=== PATIENT | male | born 1955 | race Hispanic/Latino ===

== ENCOUNTER 2021-10-10 02:57 | Emergency (ER) | payer OTHER ==
[~2021-10-10] VITALS: Ht 182.9 cm; Wt 73.6 kg
[2021-10-10 03:54] LABS: HEMATOCRIT 30.7 % (39.0-50.0); HEMOGLOBIN 10.1 g/dl (14.0-18.0); IMMATURE GRANULOCYTES 0.3 % (0.0-5.0); MEAN CORPUSCULAR HGB 33.9 pG CALC (26.0-32.0); MEAN CORPUSCULAR HGB CONC 32.9 g/dL CAL (32.0-36.0); NEUT# 14.06 thou/uL (1.82-7.42); RED BLOOD COUNT 2.98 mill/uL (4.70-6.10); RED CELL DISTRI WIDTH 13.4 % (11.5-15.5)
[2021-10-10] MEDS ORDERED: BUMETANIDE1 MG PO (03:55)
[2021-10-10] MEDS ORDERED: CALCITRIOL0.25 MC1 PO (03:55)
[2021-10-10] MEDS ORDERED: CLOPIDOGREL75 MG PO (03:56)
[2021-10-10] MEDS ORDERED: OMEPRAZOLE20 MG PO (03:56)
[2021-10-10] MEDS ORDERED: RENVELA800 MG PO (03:57)
[2021-10-10] MEDS ORDERED: CARVEDILOL6.25 MG PO (03:58)
[2021-10-10] MEDS ORDERED: [UNRECOGNIZED DRUG - OTHER] PO (03:59)
[2021-10-10] MEDS ORDERED: B COMPLEX PO (03:59)
[2021-10-10] MEDS ORDERED: ASPIRIN EC LOW81 MG PO (04:00)
[2021-10-10] MEDS ORDERED: ATORVASTATIN CA20 MG PO (04:00)
[2021-10-10] MEDS ORDERED: CYMBALTA60 MG PO (04:01)
[2021-10-10] MEDS ORDERED: DOCUSATE SOD100 MG PO (04:02)
[2021-10-10] MEDS ORDERED: ACETAMINOPHEN325 MG PO (04:03)
[2021-10-10 04:09] LABS: TOTAL PROTEIN 6.5 g/dL (6.3-8.2)
[2021-10-10 04:13] LABS: ALBUMIN 3.5 g/dL (3.2-5.0); BILIRUBIN, TOTAL 0.9 mg/dL (0.0-1.4)
[2021-10-10 04:14] LABS: POTASSIUM 5.8 mmol/l (3.5-5.1)
[2021-10-10 08:03] VITALS: BP 125/63
== END 2021-10-10 09:04 | disposition short-term general hospital (02) | DRG 314 ==
LOC: ED 02:57
PROVIDERS: Emergency Medicine
DX: T82.7XXA Infection and inflammatory reaction due to other cardiac and vascular devices, implants and grafts, initial encounter (principal); N18.6 End stage renal disease; Z99.2 Dependence on renal dialysis; Y83.2 Surgical operation with anastomosis, bypass or graft as the cause of abnormal reaction of the patient, or of later complication, without mention of misadventure at the time of the procedure; Z20.822 Contact with and (suspected) exposure to COVID-19

== ENCOUNTER 2023-04-28 21:12 | Emergency (ER) | payer OTHER ==
[~2023-04-28] VITALS: Ht 182.9 cm; Wt 92.0 kg
[~2023-04-28 21:12] MED LIST: ACETAMINOPHEN325 MG PO; ASPIRIN EC LOW81 MG PO; ATORVASTATIN CA20 MG PO; B COMPLEX PO; BUMETANIDE1 MG PO; CALCITRIOL0.25 MC1 PO; CARVEDILOL6.25 MG PO; CLONIDINE0.2 MG PO; CLOPIDOGREL75 MG PO; CYMBALTA60 MG PO; DOCUSATE SOD100 MG PO; OMEPRAZOLE20 MG PO; RENVELA800 MG PO; [UNRECOGNIZED DRUG - OTHER] PO
[2023-04-28 22:27] LABS: BASO% 0.2 % (0-3); EOS% 0.2 % (0-8); HEMATOCRIT 25.9 % (39.0-50.0); HEMOGLOBIN 8.2 g/dl (14.0-18.0); IMMATURE GRANULOCYTES 0.5 % (0.0-5.0); LYMPH% 5.4 % (15-41); MEAN CELL VOLUME 98.9 fL CALC (80.0-100.0); MEAN CORPUSCULAR HGB 31.3 pG CALC (26.0-32.0); MEAN CORPUSCULAR HGB CONC 31.7 g/dL CAL (32.0-36.0); MONO% 6.4 % (2-13); NEUT# 11.36 thou/uL (1.82-7.42); NEUT% 87.3 % (42-76); RED BLOOD COUNT 2.62 mill/uL (4.70-6.10); RED CELL DISTRI WIDTH 14.8 % (11.5-15.5)
[2023-04-28 22:33] LABS: C-REACTIVE PROTEIN 7.8 mg/dL (0-0.9)
[2023-04-28] MEDS ORDERED: LEVAQUIN750 M1 PO (22:55)
[2023-04-28 23:58] VITALS: BP 138/75
== END 2023-04-29 | disposition home or self-care (01) | DRG 603 ==
LOC: ED 21:12
PROVIDERS: Family Medicine
DX: L03.115 Cellulitis of right lower limb (principal); S80.811A Abrasion, right lower leg, initial encounter; I10 Essential (primary) hypertension; G62.9 Polyneuropathy, unspecified; X58.XXXA Exposure to other specified factors, initial encounter

== ENCOUNTER 2023-05-03 11:16 | Observation (INO) | payer OTHER ==
[~2023-05-03] VITALS: Ht 182.9 cm; Wt 67.0 kg
[~2023-05-03 11:16] MED LIST changes: +LEVAQUIN750 M1 PO
[2023-05-03 11:28] VITALS: BP 122/67
[2023-05-03 11:30] VITALS: BP 121/70
[2023-05-03 12:11] LABS: BASO% 0.5 % (0-3); EOS% 2.3 % (0-8); HEMATOCRIT 27.3 % (39.0-50.0); HEMOGLOBIN 8.4 g/dl (14.0-18.0); IMMATURE GRANULOCYTES 1.4 % (0.0-5.0); LYMPH% 13.5 % (15-41); MEAN CELL VOLUME 100.4 fL CALC (80.0-100.0); MEAN CORPUSCULAR HGB 30.9 pG CALC (26.0-32.0); MEAN CORPUSCULAR HGB CONC 30.8 g/dL CAL (32.0-36.0); MONO% 12.1 % (2-13); NEUT# 5.17 thou/uL (1.82-7.42); NEUT% 70.2 % (42-76); RED BLOOD COUNT 2.72 mill/uL (4.70-6.10); RED CELL DISTRI WIDTH 14.4 % (11.5-15.5)
[2023-05-03 12:18] LABS: ALBUMIN 3.6 g/dL (3.2-5.0); BILIRUBIN, TOTAL 0.8 mg/dL (0.2-1.3); CREATININE 4.8 mg/dL (0.7-1.3); POTASSIUM 4.9 mmol/l (3.5-5.1); TOTAL PROTEIN 7.5 g/dL (6.3-8.2)
[2023-05-03] MEDS ORDERED: ATORVASTATIN CA20 MG PO (14:50)
[2023-05-03] MEDS ORDERED: PHOSLO667 MG PO ×2 (14:52→14:55)
[2023-05-03] MEDS ORDERED: TRAMADOL HCL50 MG PO (14:52)
[2023-05-03] MEDS ORDERED: ROPINIROLE0.5 MG PO (14:57)
[2023-05-03] MEDS ORDERED: COLACE100 MG PO (14:58)
[2023-05-03 18:31] LABS: HEMATOCRIT 26.7 % (39.0-50.0); HEMOGLOBIN 8.4 g/dl (14.0-18.0)
[2023-05-03 19:22] VITALS: BP 119/59
[2023-05-04 04:24] VITALS: BP 123/64
[2023-05-04 06:01] LABS: BASO% 0.5 % (0-3); EOS% 2.9 % (0-8); HEMATOCRIT 24.3 % (39.0-50.0); HEMOGLOBIN 7.8 g/dl (14.0-18.0); IMMATURE GRANULOCYTES 1.6 % (0.0-5.0); LYMPH% 15.2 % (15-41); MEAN CELL VOLUME 98.4 fL CALC (80.0-100.0); MEAN CORPUSCULAR HGB 31.6 pG CALC (26.0-32.0); MEAN CORPUSCULAR HGB CONC 32.1 g/dL CAL (32.0-36.0); MONO% 13.9 % (2-13); NEUT# 3.65 thou/uL (1.82-7.42); NEUT% 65.9 % (42-76); RED BLOOD COUNT 2.47 mill/uL (4.70-6.10); RED CELL DISTRI WIDTH 14.3 % (11.5-15.5)
[2023-05-04 06:26] LABS: ALBUMIN 3.4 g/dL (3.2-5.0); BILIRUBIN, TOTAL 0.7 mg/dL (0.2-1.3); POTASSIUM 4.5 mmol/l (3.5-5.1); TOTAL PROTEIN 7.3 g/dL (6.3-8.2)
[2023-05-04 06:36] LABS: CREATININE 5.7 mg/dL (0.7-1.3)
[2023-05-04 06:57] VITALS: BP 136/63
[2023-05-04 11:55] VITALS: BP 126/78
[2023-05-04 13:54] VITALS: BP 126/78
[2023-05-04 14:36] LABS: HEMATOCRIT 25.1 % (39.0-50.0); HEMOGLOBIN 7.7 g/dl (14.0-18.0)
[2023-05-04] MEDS ORDERED: LEVOFLOXACIN IV (15:42)
[2023-05-04] MEDS ORDERED: [UNRECOGNIZED DRUG - OTHER] IV (15:42)
[2023-05-04] MEDS ORDERED: VANCOMYCIN IV (15:42)
[2023-05-04 18:57] VITALS: BP 141/70
== END 2023-05-04 19:15 | disposition designated cancer center or children's hospital (05) | DRG 602 ==
LOC: ED 11:16 → ED-I 13:27 → ED 13:40 → MS2 13:41
PROVIDERS: Family Medicine; Nurse Practitioner Family; ADMIT Student in an Organized Health Care Education/Training Program; ATTEND Student in an Organized Health Care Education/Training Program
PROC: 5A1D70Z Performance of Urinary Filtration, Intermittent, Less than 6 Hours Per Day (ICD-10-PCS; principal; 2023-05-04)
DX: L03.115 Cellulitis of right lower limb (principal); N18.6 End stage renal disease; I13.2 Hypertensive heart and chronic kidney disease with heart failure and with stage 5 chronic kidney disease, or end stage renal disease; K92.1 Melena; N25.81 Secondary hyperparathyroidism of renal origin; L97.512 Non-pressure chronic ulcer of other part of right foot with fat layer exposed; M20.41 Other hammer toe(s) (acquired), right foot; I50.9 Heart failure, unspecified; D63.1 Anemia in chronic kidney disease; Z99.2 Dependence on renal dialysis; E78.5 Hyperlipidemia, unspecified; G62.9 Polyneuropathy, unspecified; I73.9 Peripheral vascular disease, unspecified; Z79.02 Long term (current) use of antithrombotics/antiplatelets; Z88.0 Allergy status to penicillin
CPT/HCPCS: G0378

== ENCOUNTER 2024-04-15 19:45 | Emergency (ER) | payer OTHER ==
[~2024-04-15] VITALS: Ht 182.9 cm; Wt 67.0 kg
[~2024-04-15 19:45] MED LIST changes: +BACLOFEN20 MG PO; -CARVEDILOL6.25 MG PO; +CINACALCET HYDR30 MG PO; +COLACE100 MG PO; +COREG3.125 MG PO; +LASIX 20 MG TAB20 MG PO; +LEVOFLOXACIN IV; +MINERI1; +MUPIROCIN2 % EX; +PHOSLO667 MG PO; +PROTONIX40 M2 PO; +ROPINIROLE0.5 MG PO; +TRAMADOL HCL50 MG PO; +VANCOMYCIN IV; +VANCOMYCIN500 MG IJ; +VITAMIN D325 MCG PO; +[UNRECOGNIZED DRUG - OTHER] IV
[2024-04-15 20:20] VITALS: BP 104/64
== END 2024-04-15 20:20 | disposition designated cancer center or children's hospital (05) | DRG 951 ==
LOC: ED 19:45
DX: Z46.89 Encounter for fitting and adjustment of other specified devices (principal); I33.0 Acute and subacute infective endocarditis; N18.6 End stage renal disease; I12.0 Hypertensive chronic kidney disease with stage 5 chronic kidney disease or end stage renal disease; Z99.2 Dependence on renal dialysis; G62.9 Polyneuropathy, unspecified

== ENCOUNTER 2024-04-20 09:51 | Emergency (ER) | payer OTHER ==
[~2024-04-20] VITALS: Ht 182.9 cm; Wt 63.5 kg
[2024-04-20] VITALS (18 sets, daily range): BP systolic 143–182; BP diastolic 84–152
[2024-04-20 11:01] LABS: BASO% 0.3 % (0-3); EOS% 0.3 % (0-8); IMMATURE GRANULOCYTES 0.3 % (0.0-5.0); LYMPH% 18.3 % (15-41); MEAN CORPUSCULAR HGB 34.6 pG CALC (26.0-32.0); MEAN CORPUSCULAR HGB CONC 31.6 g/dL CAL (32.0-36.0); MONO% 4.4 % (2-13); NEUT% 76.4 % (42-76); RED BLOOD COUNT 3.93 mill/uL (4.70-6.10)
[2024-04-20 11:06] LABS: HEMATOCRIT 43.1 % (39.0-50.0); HEMOGLOBIN 13.6 g/dl (14.0-18.0); MEAN CELL VOLUME 109.7 fL CALC (80.0-100.0)
[2024-04-20 11:47] LABS: TSH, 3RD GENERATION 91.6 uIU/mL (0.47 - 4.68)
[2024-04-20] MEDS ORDERED: LEVOTHYROXINE SODIUM 200 MCG VIAL IV ONE (12:35)
[2024-04-20] MEDS ORDERED: HYDROCORTISONE SODIUM SUCCINAT 100 MG VIAL IV ONE (12:35)
[2024-04-20 13:18] LABS: ALBUMIN 3.1 g/dL (3.2-5.0); ALKALINE PHOSPHATASE 104 u/l (38-126); ANION GAP 11 (6-22 (CALC)); BILIRUBIN, TOTAL 0.7 mg/dL (0.2-1.3); BUN 52 mg/dL (8-23); CARBON DIOXIDE 30 mmol/l (22-30); CHLORIDE 105 mmol/l (95-108); LIPASE 87 u/l (23-300); MAGNESIUM 1.9 mg/dL (1.6-2.3); POTASSIUM 4.4 mmol/l (3.5-5.1); SGOT/AST 38 u/l (19-48); TOTAL PROTEIN 6.6 g/dL (6.3-8.2)
[2024-04-20 13:19] LABS: BUN/CREATININE RATIO 13 (12-20 (CALC)); ESTIMATED GFR 16 ML/MIN (>=90 (CALC)); SODIUM 142 mmol/l (137-146)
[2024-04-20] MEDS ORDERED: AZTREONAM 1 GM in SODIUM CHLORIDE 0.9% 50 ML IV ONE (14:20)
== END 2024-04-20 15:16 | disposition short-term general hospital (02) | DRG 947 ==
LOC: ED 09:51
PROVIDERS: Family Medicine
DX: R41.82 Altered mental status, unspecified (principal); E03.9 Hypothyroidism, unspecified; N18.6 End stage renal disease; I12.0 Hypertensive chronic kidney disease with stage 5 chronic kidney disease or end stage renal disease; Z99.2 Dependence on renal dialysis; G62.9 Polyneuropathy, unspecified; Z20.822 Contact with and (suspected) exposure to COVID-19

== ENCOUNTER 2024-09-06 11:09 | Emergency (ER) | payer OTHER ==
[2024-09-06] VITALS (18 sets, daily range): BP systolic 71–124; BP diastolic 28–74
[~2024-09-06] VITALS: Ht 182.9 cm; Wt 60.0 kg
[2024-09-06] MEDS ORDERED: SODIUM CHLORIDE 0.9% 500 ML IV ONE (11:20)
[2024-09-06] MEDS ORDERED: SODIUM CHLORIDE 0.9% 250 ML IV ONE (11:30)
[2024-09-06] MEDS ORDERED: Pantoprazole Sodium 40 MG VIAL (Protonix) IV ONE (11:30)
[2024-09-06] MEDS ORDERED: SODIUM CHLORIDE 0.9% 250 ML IV PRN (12:10)
[2024-09-06] MEDS ORDERED: NOREPINEPHRINE BITARTRATE 4 MG in DEXTROSE 5% 250 ML IV ONE (12:10)
[2024-09-06 12:30] LABS: POTASSIUM 4.4 mmol/l (3.5-5.1)
[2024-09-06 12:33] LABS: BASO% 0.5 % (0-3); EOS% 0.1 % (0-8); IMMATURE GRANULOCYTES 1.8 % (0.0-5.0); LYMPH% 11.4 % (15-41); MEAN CORPUSCULAR HGB 33.3 pG CALC (26.0-32.0); MEAN CORPUSCULAR HGB CONC 28.7 g/dL CAL (32.0-36.0); MONO% 5.7 % (2-13); NEUT# 7.04 thou/uL (1.82-7.42); NEUT% 80.5 % (42-76); RED BLOOD COUNT 0.87 mill/uL (4.70-6.10); RED CELL DISTRI WIDTH 22.6 % (11.5-15.5)
[2024-09-06 12:41] LABS: ALBUMIN 2.5 g/dL (3.2-5.0); BILIRUBIN, TOTAL 0.5 mg/dL (0.2-1.3)
[2024-09-06 12:42] LABS: HEMATOCRIT 10.1 % (39.0-50.0); HEMOGLOBIN 2.9 g/dl (14.0-18.0); MEAN CELL VOLUME 116.1 fL CALC (80.0-100.0)
[2024-09-10 13:25] VITALS: BP 105/57
[2024-09-10 13:45] VITALS: BP 110/65
[2024-09-10 13:50] VITALS: BP 108/65
[2024-09-10 14:15] VITALS: BP 118/75
== END 2024-09-06 14:13 | disposition short-term general hospital (02) | DRG 811 ==
LOC: ED 11:09
PROVIDERS: Family Medicine
PROC: 30243N1 Transfusion of Nonautologous Red Blood Cells into Central Vein, Percutaneous Approach (ICD-10-PCS; principal; 2024-09-06)
PROC: 30243N1 Transfusion of Nonautologous Red Blood Cells into Central Vein, Percutaneous Approach (ICD-10-PCS; 2024-09-06)
PROC: 30243N1 Transfusion of Nonautologous Red Blood Cells into Central Vein, Percutaneous Approach (ICD-10-PCS; 2024-09-06)
DX: D64.9 Anemia, unspecified (principal); N18.6 End stage renal disease; K92.1 Melena; I12.0 Hypertensive chronic kidney disease with stage 5 chronic kidney disease or end stage renal disease; I95.9 Hypotension, unspecified; I48.91 Unspecified atrial fibrillation; Z99.2 Dependence on renal dialysis; G62.9 Polyneuropathy, unspecified; Z85.038 Personal history of other malignant neoplasm of large intestine; Z79.82 Long term (current) use of aspirin
CPT/HCPCS: J2470; P9016

== ENCOUNTER 2024-09-13 14:40 | Emergency (ER) | payer OTHER ==
[~2024-09-13] VITALS: Ht 182.9 cm; Wt 54.0 kg
[2024-09-13] VITALS (12 sets, daily range): BP systolic 66–145; BP diastolic 42–88
[2024-09-13] MEDS ORDERED: NALOXONE HCL 1 MG/ML SYR ONE (14:48)
[2024-09-13] MEDS ORDERED: KETAMINE HCL 50 MG/ML 10 ML VIAL IV ONE (15:15)
[2024-09-13] MEDS ORDERED: PROPOFOL 100 ML IV ONE (15:15)
[2024-09-13] MEDS ORDERED: ROCURONIUM BROMIDE 10 MG/ML 5ML VIAL IV ONE (15:15)
[2024-09-13 15:24] LABS: BASO% 0.6 % (0-3); EOS% 0.7 % (0-8); HEMATOCRIT 37.4 % (39.0-50.0); HEMOGLOBIN 11.4 g/dl (14.0-18.0); IMMATURE GRANULOCYTES 0.5 % (0.0-5.0); LYMPH% 6.2 % (15-41); MEAN CORPUSCULAR HGB 33.2 pG CALC (26.0-32.0); MEAN CORPUSCULAR HGB CONC 30.5 g/dL CAL (32.0-36.0); MONO% 5.3 % (2-13); NEUT# 7.68 thou/uL (1.82-7.42); NEUT% 86.7 % (42-76); RED BLOOD COUNT 3.43 mill/uL (4.70-6.10); RED CELL DISTRI WIDTH 20.5 % (11.5-15.5)
[2024-09-13 15:40] LABS: ALBUMIN 2.7 g/dL (3.2-5.0); CHLORIDE 99 mmol/l (95-108); CREATININE 3.9 mg/dL (0.7-1.3); ESTIMATED GFR 16 ML/MIN (>=90 (CALC)); POTASSIUM 4.4 mmol/l (3.5-5.1); SGOT/AST 27 u/l (19-48); SODIUM 136 mmol/l (137-146); TOTAL PROTEIN 5.4 g/dL (6.3-8.2)
[2024-09-13 15:41] LABS: LIPASE 186 u/l (23-300)
[2024-09-13 15:42] LABS: ALKALINE PHOSPHATASE 82 u/l (38-126); ANION GAP 14 (6-22 (CALC)); BILIRUBIN, TOTAL 0.9 mg/dL (0.2-1.3); BUN 42 mg/dL (8-23); BUN/CREATININE RATIO 11 (12-20 (CALC)); CARBON DIOXIDE 27 mmol/l (22-30)
[2024-09-13] MEDS ORDERED: VANCOMYCIN HCL 1 GM in SODIUM CHLORIDE 0.9% 250 ML IV ONE (16:00)
[2024-09-13] MEDS ORDERED: AZTREONAM 1 GM in SODIUM CHLORIDE 0.9% 50 ML IV ONE (16:00)
[2024-09-13] MEDS ORDERED: NOREPINEPHRINE BITARTRATE 4 MG in DEXTROSE 5% 250 ML IV ONE (16:05)
[2024-09-13] MEDS ORDERED: SODIUM CHLORIDE 0.9% 250 ML IV PRN (16:05)
[2024-09-13] MEDS ORDERED: SODIUM CHLORIDE 0.9% 1,000 ML IV ONE (16:05)
[2024-09-13] MEDS ORDERED: VANCOMYCIN HCL 1 GM/VIAL IV ONE (16:11)
== END 2024-09-13 19:08 | disposition short-term general hospital (02) | DRG 208 ==
LOC: ED 14:40
PROVIDERS: Family Medicine
PROC: 02HV33Z Insertion of Infusion Device into Superior Vena Cava, Percutaneous Approach (ICD-10-PCS; principal; 2024-09-13)
PROC: 5A1935Z Respiratory Ventilation, Less than 24 Consecutive Hours (ICD-10-PCS; 2024-09-13)
PROC: 0BH17EZ Insertion of Endotracheal Airway into Trachea, Via Natural or Artificial Opening (ICD-10-PCS; 2024-09-13)
PROC: 3E043XZ Introduction of Vasopressor into Central Vein, Percutaneous Approach (ICD-10-PCS; 2024-09-13)
DX: J18.9 Pneumonia, unspecified organism (principal); R40.4 Transient alteration of awareness; N18.6 End stage renal disease; I12.0 Hypertensive chronic kidney disease with stage 5 chronic kidney disease or end stage renal disease; Z99.2 Dependence on renal dialysis; Z85.038 Personal history of other malignant neoplasm of large intestine; I48.91 Unspecified atrial fibrillation; G62.9 Polyneuropathy, unspecified; Z88.1 Allergy status to other antibiotic agents; Z88.0 Allergy status to penicillin
CPT/HCPCS: J0457

== ENCOUNTER 2024-09-24 16:21 | Emergency (ER) | payer OTHER ==
[~2024-09-24] VITALS: Ht 182.9 cm; Wt 72.0 kg
[2024-09-24] VITALS (21 sets, daily range): BP systolic 135–161; BP diastolic 74–101
[2024-09-24 17:04] LABS: BASO% 0.7 % (0-3); EOS% 0.4 % (0-8); HEMATOCRIT 42.7 % (39.0-50.0); HEMOGLOBIN 12.8 g/dl (14.0-18.0); IMMATURE GRANULOCYTES 0.6 % (0.0-5.0); LYMPH% 13.6 % (15-41); MEAN CELL VOLUME 105.4 fL CALC (80.0-100.0); MEAN CORPUSCULAR HGB 31.6 pG CALC (26.0-32.0); NEUT# 5.48 thou/uL (1.82-7.42); NEUT% 76.7 % (42-76); RED BLOOD COUNT 4.05 mill/uL (4.70-6.10); RED CELL DISTRI WIDTH 17.3 % (11.5-15.5)
[2024-09-24 17:05] LABS: URINE BILIRUBIN - DIPSTICK Negative (NEGATIVE); URINE BLOOD DIPSTICK Negative (NEGATIVE); URINE GLUCOSE - DIPSTICK Negative (NEGATIVE); URINE KETONE Trace mg/dL (NEGATIVE); URINE LEUK ESTERASE Negative (NEGATIVE); URINE NITRITE - DIPSTICK Negative (Negative); URINE PROTEIN - DIPSTICK >=300 mg/dL (NEG-TRACE); URINE UROBILINOGEN - DIPSTICK 0.2 E.U./dL (0.2)
[2024-09-24 17:06] LABS: URINE COLOR Yellow
[2024-09-24 17:10] LABS: URINE SQUAMOUS EPITHELIAL CELL FEW EPI/hpf (0-FEW)
[2024-09-24 17:11] LABS: URINE RBC 0-2 RBC/hpf (0-5); URINE TRANSITIONAL EPI. CELLS FEW hpf; URINE WBC 0-2 WBC/hpf (0-5)
[2024-09-24 17:21] LABS: ALBUMIN 2.9 g/dL (3.2-5.0); BILIRUBIN, TOTAL 0.6 mg/dL (0.2-1.3); POTASSIUM 4.9 mmol/l (3.5-5.1); TOTAL PROTEIN 6.1 g/dL (6.3-8.2)
== END 2024-09-24 21:56 | disposition short-term general hospital (02) | DRG 189 ==
LOC: ED 16:21
PROVIDERS: Nurse Practitioner
DX: J81.1 Chronic pulmonary edema (principal); N18.6 End stage renal disease; I12.0 Hypertensive chronic kidney disease with stage 5 chronic kidney disease or end stage renal disease; Z99.2 Dependence on renal dialysis; G62.9 Polyneuropathy, unspecified